=== PATIENT | female | born 1990 ===

== ENCOUNTER 2020-06-08 18:29 | Outpatient (REF) | payer SELFPAY | END 2020-06-08 18:30 | disposition home or self-care (01) | LOC: HO.HSH 18:29 | PROVIDERS: Visit Provider Internal Medicine Critical Care Medicine | DX: Z20.828 Contact with and (suspected) exposure to other viral communicable diseases (principal) | CPT/HCPCS: U0003 ==

== ENCOUNTER → 2020-07-17 14:45 | Outpatient (BNVA) | payer OTHER, SELFPAY | PROVIDERS: Visit Provider Physician Assistant | DX: Z76.89 Persons encountering health services in other specified circumstances (principal) ==

== ENCOUNTER → 2020-07-19 09:24 | Outpatient (BNVA) | payer OTHER, SELFPAY | PROVIDERS: Visit Provider Surgery | DX: Z76.89 Persons encountering health services in other specified circumstances (principal) ==

== ENCOUNTER 2020-07-25 11:29 | Outpatient (REF) | payer OTHER, SELFPAY ==
--- NOTE | 2020-07-25 11:48 | ECG_ITS ---
Test Reason : CP Blood Pressure : / mmHG Vent. Rate : 073 BPM Atrial Rate : 073 BPM P-R Int : 122 ms QRS Dur : 086 ms QT Int : 380 ms P-R-T Axes : 035 056 030 degrees QTc Int : 418 ms Sinus rhythm with marked sinus arrhythmia Otherwise normal ECG No previous ECGs available Referred By: Arden Gifford Electronically Signed By:CARRINGTON MCMILLAN MD
--- NOTE | 2020-07-25 11:59 | XR_ITS ---
EXAMINATION: XR CHEST CLINICAL INFORMATION: Severe obesity due to excess calories COMPARISON: None TECHNIQUE: 2 views of the chest were obtained. FINDINGS: No significant abnormality is noted involving the heart, lungs, mediastinum, bony thorax or soft tissues. XR/XR chest 2V IMPRESSION: Unremarkable chest examination.
[2020-07-25 12:09] LABS: MANUAL DIFF FLAG NO
[2020-07-25 12:15] LABS: Basophils Percent Auto 0.5 % (0-2); Eosinophils Absolute Auto 0.1 X10*3/uL (0.0-0.4); Eosinophils Percent Auto 1.8 % (0-4); Hematocrit 39.2 % (37-47); Imm Gran Abs Auto 0.02 X10*3/uL (0.00-0.03); Imm Gran Pct Auto 0.3 % (0.0-0.4); Lymphocytes Percent Auto 38.4 % (20-40); Mean Corpuscular HGB Conc 30.6 g/dl (31.0-35.0); Mean Corpuscular Hemoglobin 23.3 pg (27.0-33.0); Mean Corpuscular Volume 76.3 fL (80-98); Monocytes Absolute Auto 0.6 X10*3/uL (0.1-1.2); Monocytes Percent Auto 7.6 % (2-11); Neutrophils Absolute Auto 4.1 X10*3/uL (2.0-8.3); Neutrophils Percent Auto 51.4 % (45-73); Platelet Count 342 X10*3/uL (160-400); Red Blood Count 5.14 X10*6/uL (4.20-5.50); Red Cell Distribution Width 17.1 % (11.0-16.0); White Blood Count 7.9 X10*3/uL (4.8-10.8)
[2020-07-25 12:20] LABS: Estimated Average Glucose 117 mg/dL; Hemoglobin A1c % 5.7 %
[2020-07-25 12:59] LABS: Alanine Aminotransferase 12 U/L (0-31); Albumin Level 3.8 g/dL (3.5-5.0); Alkaline Phosphatase 117 U/L (39-117); Anion Gap 11 (12-20); Aspartate Amino Transferase 15 U/L (5-31); Bilirubin Total 0.3 mg/dL (0.0-1.0); Blood Urea Nitrogen 12 mg/dL (9-16); C Reactive Protein 2.04 mg/dL (< or = 0.50); Calcium 8.5 mg/dL (8.4-10.2); Carbon Dioxide 26 mmol/L (22-29); Chloride 105 mmol/L (96-108); Cholesterol 190 mg/dL; Estimated Glomerular Filt Rate > 60; Glucose Random 96 mg/dL (60-115); HDL Cholesterol 36 mg/dL; LDL Cholesterol Calculated 130 mg/dl; Potassium 4.4 mmol/l (3.3-5.1); Sodium 138 mmol/L (135-145); Total Protein 7.7 g/dL (6.5-8.0); Triglycerides 122 mg/dL
[2020-07-25 13:24] LABS: Ferritin 12 ng/mL (10-122); TSH reflex Free T4 0.74 mIU/mL (0.32-4.0); Vitamin D 25-OH Total 11.4 ng/mL (>30)
[2020-07-25 13:44] LABS: Folate 6.7 ng/mL (> or = 4.0); Vitamin B12 333 pg/mL (200-900)
[2020-07-26 11:42] LABS: Insulin Level Total 11.1 uIU/mL
[2020-07-26 19:08] LABS: Calcium (PTHI) 8.7 mg/dL (8.6-10.2); PTHI 60 pg/mL (14-64)
[2020-07-29 23:32] LABS: Zinc 83 mcg/dL (60-130)
[2020-07-30 08:22] LABS: Vitamin B1 9 nmol/L (8-30)
[2020-07-31 14:12] LABS: Vitamin A 28 mcg/dL (38-98)
== END 2020-07-25 11:30 | disposition home or self-care (01) ==
LOC: HO.LAB 11:29
PROVIDERS: Visit Provider Surgery
DX: E66.01 Morbid (severe) obesity due to excess calories (principal); R79.89 Other specified abnormal findings of blood chemistry
CPT/HCPCS: 36415; 71046; 80053; 80061; 82306; 82607; 82728; 82746; 83036; 83525; 83970; 84425; 84443; 84590; 84630; 85025; 86140; 93005

== ENCOUNTER 2020-08-03 18:15 | Emergency (ER) | payer OTHER, SELFPAY ==
[2020-08-03 18:31] VITALS: BP 142/88; PULSE 90; RESP 16; TEMP 36.5; O2SAT 100; BMI 41.2
== END 2020-08-03 19:18 | disposition left against medical advice (07) ==
PROVIDERS: Emergency Provider Emergency Medicine
DX: S10.91XA Abrasion of unspecified part of neck, initial encounter (principal); Y04.2XXA Assault by strike against or bumped into by another person, initial encounter; M79.601 Pain in right arm; Y93.F9 Activity, other caregiving; Y92.129 Unspecified place in nursing home as the place of occurrence of the external cause; Y99.0 Civilian activity done for income or pay
CPT/HCPCS: 99282

== ENCOUNTER 2020-08-07 11:25 | Outpatient (REF) | payer OTHER, SELFPAY ==
[2020-08-09 13:41] LABS: H Pylori Breath Test DETECTED (NOT DETECTED)
== END 2020-08-07 11:26 | disposition home or self-care (01) ==
LOC: HO.LNP 11:25
PROVIDERS: PCP Internal Medicine; Visit Provider Physician Assistant
DX: Z11.0 Encounter for screening for intestinal infectious diseases (principal)
CPT/HCPCS: 83013; 99211

== ENCOUNTER → 2020-08-17 08:08 | Outpatient (BNVA) | payer OTHER, SELFPAY | PROVIDERS: PCP Internal Medicine; Visit Provider Surgery | DX: Z76.89 Persons encountering health services in other specified circumstances (principal) ==

== ENCOUNTER → 2020-08-24 08:23 | Outpatient (BNVA) | payer OTHER, SELFPAY | PROVIDERS: PCP Internal Medicine; Visit Provider Dietitian, Registered ==

== ENCOUNTER → 2020-09-05 07:28 | Outpatient (BNVA) | payer OTHER, SELFPAY | PROVIDERS: PCP Internal Medicine; Visit Provider Surgery ==

== ENCOUNTER → 2020-09-19 08:13 | Outpatient (BNVA) | payer OTHER, SELFPAY | PROVIDERS: PCP Internal Medicine; Visit Provider Dietitian, Registered ==

== ENCOUNTER → 2020-10-01 08:18 | Outpatient (BNVA) | payer OTHER, SELFPAY | PROVIDERS: PCP Internal Medicine; Visit Provider Surgery ==

== ENCOUNTER → 2020-10-03 08:13 | Outpatient (BNVA) | payer OTHER, SELFPAY | PROVIDERS: PCP Internal Medicine; Visit Provider Dietitian, Registered ==

== ENCOUNTER 2022-02-25 09:46 | Outpatient (REF) | payer OTHER, SELFPAY ==
--- NOTE | ~2022-02-25 | XR_ITS ---
EXAMINATION: XR CHEST CLINICAL INFORMATION: Bariatric service evaluation, E66.01. COMPARISON: Chest radiographs 07/25/2020 TECHNIQUE: 2 views of the chest were obtained. FINDINGS: Lungs are clear. The vascularity is normal. There is no infiltrate or effusion or groundglass opacity. The hilar and mediastinal contours are normal. Bony structures are unremarkable. There is a piercing overlying the left breast. XR/XR chest 2V IMPRESSION: Unremarkable examination.
--- NOTE | 2022-02-25 09:53 | ECG_ITS ---
Test Reason : E66.01 Blood Pressure : / mmHG Vent. Rate : 085 BPM Atrial Rate : 085 BPM P-R Int : 124 ms QRS Dur : 082 ms QT Int : 366 ms P-R-T Axes : 042 055 024 degrees QTc Int : 435 ms Normal sinus rhythm Normal ECG When compared with ECG of 25-JUL-2020 11:54, No significant change was found Referred By: Isrrael Bennett Electronically Signed By:TRIPP VALENZUELA
[2022-02-25 10:39] LABS: Hemoglobin 12.6 g/dl (12.0-16.0); Mean Corpuscular Volume 78.2 fL (80.0-98.0); PLT CLUMP 1; Red Cell Distribution Width 17.2 % (11.0-16.0); SCAN SMEAR FLAG 1
[2022-02-25 10:41] LABS: Basophils Absolute Auto 0.1 X10*3/uL (0.0-0.2); Basophils Percent Auto 0.5 % (0-2); Eosinophils Absolute Auto 0.1 X10*3/uL (0.0-0.4); Eosinophils Percent Auto 1.2 % (0-4); Hematocrit 40.8 % (37.0-47.0); Imm Gran Abs Auto 0.02 X10*3/uL (0.00-0.03); Imm Gran Pct Auto 0.2 % (0.0-0.4); Lymphocytes Absolute Auto 3.1 X10*3/uL (1.2-4.9); MANUAL DIFF FLAG SCAN; Mean Corpuscular HGB Conc 30.9 g/dl (31.0-35.0); Mean Corpuscular Hemoglobin 24.1 pg (27.0-33.0); Mean Platelet Volume 11.9 fL (9.4-12.3); Monocytes Absolute Auto 0.6 X10*3/uL (0.1-1.2); Monocytes Percent Auto 5.5 % (2-11); Neutrophils Absolute Auto 6.4 x10*3/uL (2.0-8.3); Neutrophils Percent Auto 62.6 % (45-73); Red Blood Count 5.22 X10*6/uL (4.20-5.50)
[2022-02-25 10:46] LABS: Estimated Average Glucose 126 mg/dL
[2022-02-25 11:31] LABS: Alanine Aminotransferase 12 U/L (0-31); Alkaline Phosphatase 132 U/L (39-117); Anion Gap 12 (12-20); Aspartate Amino Transferase 16 U/L (5-31); Bilirubin Total 0.5 mg/dL (0.0-1.0); Blood Urea Nitrogen 10 mg/dL (9-16); C Reactive Protein 4.49 mg/dL (< or = 0.50); Carbon Dioxide 26 mmol/L (22-29); Chloride 105 mmol/L (96-108); Cholesterol 211 mg/dL; Estimated Glomerular Filt Rate > 60; Glucose Random 109 mg/dL (60-115); HDL Cholesterol 39 mg/dL; Iron 42 mcg/dL (30-160); LDL Cholesterol Calculated 143 mg/dl; Percent Iron Saturation 10 % (15-50); Potassium 4.8 mmol/L (3.3-5.1); Sodium 138 mmol/L (135-145); Total Iron Binding Capacity 412 mcg/dL (228-428); Total Protein 7.8 g/dL (6.5-8.0); Triglycerides 145 mg/dL; Unsaturated Iron Binding 370 ug/dL
[2022-02-25 11:33] LABS: Platelet Count 304 X10*3/uL (160-400); White Blood Count 10.2 X10*3/uL (4.8-10.8)
[2022-02-25 11:34] LABS: SLIDE REVIEW VERIFIED
[2022-02-25 11:49] LABS: Folate 7.2 ng/mL (> or = 4.0); Vitamin B12 291 pg/mL (200-900)
[2022-02-25 11:56] LABS: Ferritin 26 ng/mL (10-122); Insulin 14 uU/mL (2-29); TSH reflex Free T4 0.88 uIU/mL (0.32-4.0); Vitamin D 25-OH Total 27.7 ng/mL (>30)
[2022-02-26 14:22] LABS: Calcium (PTHI) 9.2 mg/dL (8.6-10.2); PTHI 63 pg/mL (16-77)
[2022-03-01 06:06] LABS: Zinc 90 mcg/dL (60-130)
[2022-03-03 17:42] LABS: Vitamin A 31 mcg/dL (38-98)
[2022-03-05 15:51] LABS: Vitamin B1 <6 nmol/L (8-30)
== END 2022-02-25 09:47 | disposition home or self-care (01) ==
LOC: HO.LAB 09:46
PROVIDERS: PCP Internal Medicine; Visit Provider Physician Assistant Surgical
DX: E66.01 Morbid (severe) obesity due to excess calories (principal); Z68.42 Body mass index [BMI] 45.0-49.9, adult; Z71.3 Dietary counseling and surveillance
CPT/HCPCS: 36415; 71046; 80053; 80061; 82306; 82607; 82728; 82746; 83036; 83525; 83540; 83970; 84425; 84443; 84590; 84630; 85025; 86140; 93005; 99211; 99212

== ENCOUNTER 2022-02-25 15:13 | Outpatient (REF) | payer OTHER, SELFPAY ==
[2022-02-26 15:43] LABS: H Pylori Breath Test Positive (Negative)
== END 2022-02-25 15:14 | disposition home or self-care (01) ==
LOC: HO.LNP 15:13
PROVIDERS: Visit Provider Physician Assistant Surgical
DX: E66.01 Morbid (severe) obesity due to excess calories (principal)
CPT/HCPCS: 83013

== ENCOUNTER → 2022-03-17 08:05 | Outpatient (BNVA) | payer OTHER, SELFPAY | PROVIDERS: PCP Internal Medicine; Visit Provider Physician Assistant Surgical | DX: E66.01 Morbid (severe) obesity due to excess calories (principal); A04.8 Other specified bacterial intestinal infections; Z71.3 Dietary counseling and surveillance; Z79.899 Other long term (current) drug therapy | CPT/HCPCS: 99212 ==

== ENCOUNTER → 2022-04-14 14:10 | Outpatient (BNVA) | payer OTHER, SELFPAY | PROVIDERS: PCP Internal Medicine; Referring Provider Physician Assistant Surgical; Visit Provider Dietitian, Registered | DX: E66.01 Morbid (severe) obesity due to excess calories (principal); Z68.42 Body mass index [BMI] 45.0-49.9, adult; Z71.3 Dietary counseling and surveillance | CPT/HCPCS: 97802 ==

== ENCOUNTER 2022-04-15 09:14 | Outpatient (REF) | payer OTHER, SELFPAY ==
--- NOTE | ~2022-04-15 | US_ITS ---
EXAMINATION: US COMPLETE ABDOMEN WITH LIVER ELASTOGRAPHY CLINICAL INFORMATION: Obesity COMPARISON: None. TECHNIQUE: Real-time imaging of the abdominal viscera. Noninvasive ultrasound liver fibrosis assessment is performed using Ean ElastPQ point quantification shear wave elastography (2D-SWE) with a C5-2 MHz transducer. Multiple elastography samples are obtained. FINDINGS: PANCREAS: Normal. ABDOMINAL AORTA: The proximal, middle, and distal aortic segments are normal in caliber. INFERIOR VENA CAVA: Visualized portions are normal. LIVER: Normal. The liver demonstrates normal size, contour and echogenicity. No focal lesion or intrahepatic biliary duct dilatation. The right lobe measures 17 cm in length. The left lobe measures 14 cm in length. Portal flow is normal/hepatopedal Shear wave liver elastography median stiffness is 1.67 m/s (reference: normal median stiffness is 1.3 m/s or less). IQR/median stiffness to assess sampling precision is 0.13 (reference: good quality data set is IQR/median stiffness of 0.15 or less). GALLBLADDER: Normal. The gallbladder is physiologically distended without evidence of stones, sludge, polyps, wall thickening or pericholecystic fluid. COMMON BILE DUCT: Normal in caliber measuring 0.2 cm in diameter. RIGHT KIDNEY: Normal. No hydronephrosis. No renal calculi or focal parenchymal lesions. The kidney measures 12 cm in maximum dimension. LEFT KIDNEY: Normal. No hydronephrosis. No renal calculi or focal parenchymal lesions. The kidney measures 12 cm in maximum dimension. SPLEEN: Normal. The spleen measures 11 cm in maximum dimension. FREE FLUID: None. US/US abdomen comp w elastography IMPRESSION: 1. Impression: Normal abdominal ultrasound. 2. Liver elastography: Adequate liver sampling. In the absence of other known clinical signs, rules out compensated advanced chronic liver disease. REFERENCE: Society of Radiologists in Ultrasound Liver Stiffness Thresholds (2020): LIVER STIFFNESS THRESHOLDS: *Liver Stiffness equal or less than 1.3 m/s: High probability of being normal. *Liver Stiffness less than 1.7 m/s: In the absence of other known clinical signs, rules out compensated advanced chronic liver disease. *Liver Stiffness 1.7-2.1 m/s: Suggestive of compensated advanced chronic liver disease but need further test for confirmation. *Liver Stiffness over 2.1 m/s: Rules in compensated advanced chronic liver disease. *Liver Stiffness over 2.4 m/s: Suggestive of clinically significant portal hypertension. QUALITY OF DATA SET: *IQR/Median value equal or less than 0.15 implies a quality data set. *IQR/Median value over 0.15 implies a poor quality data set. SIGNIFICANT CHANGE FROM PRIOR EXAM: Significant change if liver stiffness measurement is 10% or greater from prior exam. OTHER CONSIDERATIONS: The stage of liver fibrosis may be overestimated in the setting of acute hepatitis, liver inflammation, elevated liver function tests, hepatic vascular congestion, obstructive cholestasis, non-fasting state, and infiltrative diseases such as amyloidosis and lymphoma. In some patients with NAFLD, the liver stiffness thresholds for compensated advanced chronic liver disease may be lower. In causes other than viral hepatitis and NAFLD, liver stiffness thresholds are not well established.
--- NOTE | ~2022-04-15 | FL_ITS ---
EXAMINATION: XR FLUOROSCOPY UPPER GI WITH AIR CLINICAL INFORMATION: Obesity COMPARISON: None TECHNIQUE: Upper GI was performed using thin and thick barium and effervescent granules. FINDINGS: Esophageal motility is normal. No hernia or reflux is seen. The stomach and duodenum are normal. No fold thickening, mass, ulcer or stricture is seen. FLUOROSCOPY TIME: 0.5 minutes DOSE AREA PRODUCT: 5.7 flores per centimeter squared. 17 saved fluoroscopic images. FL/FL upper GI w air IMPRESSION: Unremarkable examination.
== END 2022-04-15 09:15 | disposition home or self-care (01) ==
LOC: HO.US 09:14
PROVIDERS: Visit Provider Physician Assistant Surgical
DX: E66.01 Morbid (severe) obesity due to excess calories (principal)
CPT/HCPCS: 74246; 76705; 76981; 99212

== ENCOUNTER → 2022-04-17 15:00 | Outpatient (BNVA) | payer OTHER, SELFPAY | PROVIDERS: PCP Internal Medicine; Referring Provider Physician Assistant Surgical; Visit Provider Counselor Mental Health | DX: F50.81 Binge eating disorder (principal); E66.01 Morbid (severe) obesity due to excess calories | CPT/HCPCS: 90791 ==

== ENCOUNTER → 2022-04-18 08:32 | Outpatient (BNVA) | payer OTHER, SELFPAY | PROVIDERS: PCP Internal Medicine; Visit Provider Physician Assistant Surgical | DX: Z11.0 Encounter for screening for intestinal infectious diseases (principal) | CPT/HCPCS: 99211 ==

== ENCOUNTER 2022-04-18 16:26 | Outpatient (REF) | payer OTHER, SELFPAY ==
[2022-04-19 09:06] LABS: H Pylori Breath Test Negative (Negative)
== END 2022-04-18 16:27 | disposition home or self-care (01) ==
LOC: HO.LNP 16:26
PROVIDERS: Visit Provider Physician Assistant Surgical
DX: Z01.818 Encounter for other preprocedural examination (principal)
CPT/HCPCS: 83013

== ENCOUNTER → 2022-04-28 09:00 | Outpatient (BNVA) | payer OTHER, SELFPAY | PROVIDERS: PCP Internal Medicine; Visit Provider Counselor Mental Health | DX: F50.81 Binge eating disorder (principal); E66.01 Morbid (severe) obesity due to excess calories | CPT/HCPCS: 90832 ==

== ENCOUNTER → 2022-05-15 13:41 | Outpatient (BNVA) | payer OTHER, SELFPAY | PROVIDERS: PCP Internal Medicine; Visit Provider Dietitian, Registered | DX: E66.9 Obesity, unspecified (principal) | CPT/HCPCS: 97803 ==

== ENCOUNTER → 2022-05-21 13:00 | Outpatient (BNVA) | payer OTHER, SELFPAY | PROVIDERS: PCP Internal Medicine; Visit Provider Physician Assistant Surgical | DX: E66.01 Morbid (severe) obesity due to excess calories (principal); F50.81 Binge eating disorder | CPT/HCPCS: 90832; 99212 ==

== ENCOUNTER → 2022-08-08 08:21 | Outpatient (BNVA) | payer OTHER, SELFPAY | PROVIDERS: PCP Internal Medicine; Visit Provider Surgery | DX: Z13.89 Encounter for screening for other disorder (principal) ==

== ENCOUNTER → 2022-08-13 09:36 | Outpatient (BNVA) | payer OTHER, SELFPAY | PROVIDERS: PCP Internal Medicine; Visit Provider Surgery | DX: Z13.89 Encounter for screening for other disorder (principal) ==

== ENCOUNTER 2022-08-14 08:58 | Outpatient (REF) | payer OTHER, SELFPAY ==
[2022-08-14 09:21] LABS: MANUAL DIFF FLAG NO
[2022-08-14 09:54] LABS: Basophils Percent Auto 0.4 % (0-2); Eosinophils Absolute Auto 0.1 X10*3/uL (0.0-0.4); Eosinophils Percent Auto 1.1 % (0-4); Hematocrit 41.6 % (37.0-47.0); Hemoglobin 12.6 g/dl (12.0-16.0); Imm Gran Abs Auto 0.05 X10*3/uL (0.00-0.03); Imm Gran Pct Auto 0.4 % (0.0-0.4); Lymphocytes Absolute Auto 3.2 X10*3/uL (1.2-4.9); Lymphocytes Percent Auto 28.1 % (20-40); Mean Corpuscular HGB Conc 30.3 g/dl (31.0-35.0); Mean Corpuscular Hemoglobin 23.2 pg (27.0-33.0); Mean Corpuscular Volume 76.6 fL (80.0-98.0); Mean Platelet Volume 10.5 fL (9.4-12.3); Monocytes Absolute Auto 0.7 X10*3/uL (0.1-1.2); Monocytes Percent Auto 6.3 % (2-11); Neutrophils Absolute Auto 7.3 x10*3/uL (2.0-8.3); Neutrophils Percent Auto 63.7 % (45-73); Platelet Count 334 X10*3/uL (160-400); Red Blood Count 5.43 X10*6/uL (4.20-5.50); Red Cell Distribution Width 17.5 % (11.0-16.0); White Blood Count 11.4 X10*3/uL (4.8-10.8)
[2022-08-14 10:00] LABS: INTERNATIONAL NORM RATIO 0.9 (0.9-1.1); Prothrombin Time 10.8 SEC (10.0-13.1)
[2022-08-14 10:03] LABS: Partial Thromboplastin Time 30.3 SEC (26.0-36.4)
[2022-08-14 10:56] LABS: Estimated Average Glucose 126 mg/dL
[2022-08-14 11:45] LABS: Alanine Aminotransferase 20 U/L (0-31); Albumin Level 3.8 g/dL (3.5-5.0); Alkaline Phosphatase 120 U/L (39-117); Anion Gap 11 (12-20); Aspartate Amino Transferase 16 U/L (5-31); Bilirubin Total 0.2 mg/dL (0.0-1.0); Blood Urea Nitrogen 11 mg/dL (9-16); C Reactive Protein 3.95 mg/dL (< or = 0.50); Calcium 8.9 mg/dL (8.4-10.2); Carbon Dioxide 25 mmol/L (22-29); Chloride 106 mmol/L (96-108); Cholesterol 228 mg/dL; Estimated Glomerular Filt Rate > 60; Glucose Random 133 mg/dL (60-115); HDL Cholesterol 41 mg/dL; LDL Cholesterol Calculated 162 mg/dl; Potassium 4.5 mmol/L (3.3-5.1); Sodium 137 mmol/L (135-145); Total Protein 7.5 g/dL (6.5-8.0); Triglycerides 125 mg/dL
[2022-08-14 12:12] LABS: Insulin 20 uU/mL (2-29); TSH reflex Free T4 1.06 uIU/mL (0.32-4.0)
== END 2022-08-14 08:59 | disposition home or self-care (01) ==
LOC: HO.LAB 08:58
PROVIDERS: Visit Provider Surgery
DX: E66.9 Obesity, unspecified (principal); Z68.39 Body mass index [BMI] 39.0-39.9, adult
CPT/HCPCS: 36415; 80053; 80061; 83036; 83525; 84443; 85025; 85610; 85730; 86140

== ENCOUNTER 2022-08-19 08:17 | Inpatient (IN) | payer OTHER, SELFPAY ==
[2022-08-14 15:23] VITALS: BMI 41.2
--- NOTE | 2022-08-15 22:41 | MHC.SHP ---
Pre-Procedural Eval Section A Date of Service: 08/15/22 The patient is an INPATIENT: Yes The History & Physical has been completed within 30 days and I have reviewed it.: Yes Section B Chief Complaint: morbid obesity Relevant Family History (Specify if Yes): No Relevant Social History: None Present Medications: None Medical History: No relevant PMH History of Previous Operations: No relevant previous surgery Allergies: Allergies Allergy/AdvReac Type Severity Reaction Status Date / Time No Known Allergies Allergy Verified 08/13/22 11:17 Review of Systems Sugical H&P ROS: Negative: Constitution, Cardiovascular, Respiratory, Neurological, Psychiatric, Hem-Onc, Allergic/Immunologic, Gastrointestinal, Genitourinary, Musculoskeletal, Integumentary, Endocrine and Eyes/Ears/Nose/Throat Exam Surgical H&P Exam: Normal: HEENT, Normal: Heart, Normal: Lungs, Normal: Extremities, Normal: Abdomen, Normal: Skin and Normal: Neurological Plan Diagnosis/Plan: Unchanged I have reviewed the history and physical and performed a pertinent physical examination on my patient. No changes have occurred unless specified. Time Spent With Patient Time: Total time managing care of this patient today ____ minutes.
--- NOTE | 2022-08-18 10:35 | P.CONAN_ITS ---
Documented by User: Anna Magallanes NP 08/18/22 10:37 HPI - Anesthesia Eval Consult details Narrative: 32yo F for Gastrectomy Sleeve,Possible diaphragmatic hernia,Possible ventral hernia,possible open PMFSH Active Problems Active Problems: All Active Problems (Updated 08/14/22 @ 15:24 by Susie Mata RN) Vitamin B12 deficiency (Acute) Vitamin D deficiency (Acute) H. pylori infection (Acute) Binge eating disorder (Acute) Anemia (Acute) Obesity (Acute) BMI 39.0-39.9,adult (Acute) Morbid (severe) obesity due to excess calories (Acute) Past Medical History Medical History GERD (gastroesophageal reflux disease) Morbid (severe) obesity due to excess calories Surgery, elective Family History Family History Mother No problems noted. Father Diabetes Son No problems noted. Daughter No problems noted. Surgical History Surgical History Hx of tubal ligation Hx of wisdom tooth extraction Social History Social History (Updated 08/19/22 @ 09:58 by Deborah Addison MD) Are you a primary director of managed care to a significant other at home: No Do you presently have visiting nurse or other home services: No Alcohol intake: never Patient Tobacco Use Status: Current someday Tobacco user Tobacco use type: Cigarette Cigarettes Per Day: 1 Years Smoked: 2 Smoked in Last 30 Days: Yes Use of substances other than those prescribed or required for medical reasons: No Have you been hit, kicked, punched, or otherwise hurt by someone within the past year? If so, by whom?: No Are you DNR?: No Advance Directives: No Advance Directives Information Provided: Yes Advance Directives on File: No Recently lost weight without trying: No Eating poorly because of decreased appetite: No Nutrition Risks: No Nutritional Risk Patient : No FDLMP: 07/26/22 : No Poor oral hygiene: No Meds Allergies Allergy/AdvReac Type Severity Reaction Status Date / Time No Known Allergies Allergy Verified 08/19/22 08:12 Exam Exam Date and Time: August 18, 2022 1035 Height,Weight and Vital Signs: Height 5 ft Weight 95.708 kg Pertinent Lab Results Pertinent Lab Results: Laboratory Tests 08/14/22 09:03 Blood Type A Positive Antibody Screen NEGATIVE Laboratory Tests 08/14/22 08/14/22 09:20 09:20 WBC 11.4 H Hgb 12.6 Hct 41.6 Plt Count 334 Sodium 137 Potassium 4.5 Chloride 106 Carbon Dioxide 25 BUN 11 Creatinine 0.71 Narrative Narrative: EKG Vent. Rate : 085 BPM ? ? Atrial Rate : 085 BPM ?? P-R Int : 124 ms? QRS Dur : 082 ms ? ? QT Int : 366 ms ? ? ? P-R-T Axes : 042 055 024 degrees ?? QTc Int : 435 ms ? Normal sinus rhythm Normal ECG When compared with ECG of 25-JUL-2020 11:54, No significant change was found Assessment and Plan Assessment Anesthesia Assessment: Chart Reviewed Documented by User: Deborah Addison MD 08/19/22 10:01 [facility] Active Problems Active Problems: All Active Problems (Updated 08/19/22 @ 09:58 by Deborah Addison MD) Vitamin B12 deficiency (Acute) Vitamin D deficiency (Acute) H. pylori infection (Acute) Binge eating disorder (Acute) Anemia (Acute) Obesity (Acute) BMI 39.0-39.9,adult (Acute) Morbid (severe) obesity due to excess calories (Acute)- BMI 41.2 Past Medical History Medical History GERD (gastroesophageal reflux disease) Morbid (severe) obesity due to excess calories Surgery, elective Family History Family History Mother No problems noted. Father Diabetes Son No problems noted. Daughter No problems noted. Family history of problems with anesthesia: No Surgical History Surgical History Hx of tubal ligation Hx of wisdom tooth extraction History of Problems with Anesthesia: No Social History Social History (Updated 08/19/22 @ 09:58 by Deborah Addison MD) Are you a primary director of managed care to a significant other at home: No Do you presently have visiting nurse or other home services: No Alcohol intake: never Patient Tobacco Use Status: Current someday Tobacco user Tobacco use type: Cigarette Cigarettes Per Day: 1 Years Smoked: 2 Smoked in Last 30 Days: Yes Use of substances other than those prescribed or required for medical reasons: No Have you been hit, kicked, punched, or otherwise hurt by someone within the past year? If so, by whom?: No Are you DNR?: No Advance Directives: No Advance Directives Information Provided: Yes Advance Directives on File: No Recently lost weight without trying: No Eating poorly because of decreased appetite: No Nutrition Risks: No Nutritional Risk Patient : No FDLMP: 07/26/22 : No Poor oral hygiene: No Meds Allergies Allergy/AdvReac Type Severity Reaction Status Date / Time No Known Allergies Allergy Verified 08/19/22 08:12 Exam Height,Weight and Vital Signs: Height 5 ft Weight 95.708 kg Vital Signs Temp Pulse Resp BP Pulse Ox O2 Del Method 08/19/22 08:19 97.2 F 122 H 16 149/82 H 97 Room Air Pertinent Lab Results Pertinent Lab Results: Laboratory Tests 08/14/22 09:03 Blood Type A Positive Antibody Screen NEGATIVE Laboratory Tests 08/14/22 08/14/22 09:20 09:20 WBC 11.4 H Hgb 12.6 Hct 41.6 Plt Count 334 Sodium 137 Potassium 4.5 Chloride 106 Carbon Dioxide 25 BUN 11 Creatinine 0.71 Lab Results 08/14/22 08/18/22 Range/Units 09:03 13:10 COVID-19 ([facility]CO) Negative (Negative) COVID-19 Clin Com See Note Blood Type A Positive Antibody Screen NEGATIVE Airway Mallampati Class: II TM Dist: >3cm Neck ROM: Full Loose/Missing/Broken Teeth: No (Denies broken, loose, missing teeth) Heart: RRR Lungs: CTAB Assessment and Plan Assessment Anesthesia Assessment: Anesthesia Plan Discussed Final Anesthetic Review Family History of Problems with Anesthesia: No History of Problems with Anesthesia: No NPO: Yes ASA Class: III Final Preanesthetic Review: No Changes in Pt Med Stat, Meds/Allgs Chart Reviewed, Consent Obtained/Reviewed and Anes Risks/Benef Reviewed Patient Risk: Intermediate Procedure Risk: Intermediate Assessment/Block/Sedation in SS: Assess/Block/Sedation-SS Anesthetic Plan Anesthetic Plan: GA Disposition: Standard PACU and Inp. Admit - Standard Bed
[2022-08-18 13:39] LABS: COVID-19 Test Negative (Negative); IDNOW Serial# 16C4AD1C
[2022-08-19] VITALS (16 sets, daily range): BP systolic 117–154; BP diastolic 63–99; PULSE 86–122; RESP 8–20; TEMP 36–36.7; O2SAT 97–100
[2022-08-19] MEDS: Lactated Ringers 1,000 ML 100 ML IVCONT ×3 (08:59→22:13)
[2022-08-19] MEDS: Lactated Ringers 1,000 ML 999 ML IV (08:59)
--- NOTE | 2022-08-19 10:13 | P.BOP_ITS ---
Brief Operative Note Date of Service: 08/19/22 Pre-op diagnosis: Severe obesity with comorbidities (see below) Post-op diagnosis: same Procedure: INITIAL PATIENT BMI ON PRESENTATION AT OUR OFFICE: 45.3 kg/m2 LAST BMI BEFORE SURGERY: 39.9 kg/m2 COMORBIDITIES: liver fibrosis ?The patient presented to the Weight Management Program with significant obesity that was negatively impacting the patient's comorbidities as listed above.? The program is a phased program with a special focus on preoperative medical weight management to promote substantial weight loss and prepare the patients for the second phase of the program: bariatric surgery. The patient participated in an intensive weekly lifestyle ?intervention and exercise program during which the patient ?has lost between the initial office visit and the last preoperative visit 20.9 lbs, or 9% of initial actual body weight. It was deemed appropriate for the patient to now have bariatric surgery. In light of the current Covid-19 pandemic and the well documented strong association of obesity and increased risk of worse outcomes if infected with Covid-19 (REFERENCES: https://pubmed.ncbi.nlm.nih.gov/63331084/ ,? https://pubmed.ncbi.nlm.nih.gov/18594347/ ), any delay in undergoing bariatric surgery may lead to the patient's worsening health condition and increased?risk of more severe Covid-19 disease if infected. In addition a recent?study from [facility] published in [facility] on 07/29/2021 ([email or web address]) found that, among patients with obesity, substantial weight loss achieved with surgery was associated with improved outcomes of COVID-19 infection. The findings suggest that obesity can be a modifiable risk factor for the severity of COVID-19 infection. In addition, the patient met the BMI-criteria for bariatric surgery based on the BMI on initial presentation. The patient should not be penalized for achieving such weight loss because ?it is not sustainable long-term without surgical intervention and it was achieved in preparation for bariatric surgery ?under my direction and based on my published research ([email or web address]).[email or web address] and? https://www.ree.org/article/[email or web address](94)62753-X/pdf ) ?that a 10% preoperative weight loss improves long-term weight loss after surgery and reduces perioperative complications.? Insurance carriers such as [facility] have endorsed my recommendations ?and have included in their policies criteria to include a 10% preoperative weight loss requirement. PROCEDURE: Esophago-gastroscopy,diagnostic laparoscopy INDICATIONS: This is a 32 year-old female who was electively scheduled for laparoscopic, possibly open sleeve gastrectomy. The risks and complications of the procedure were discussed with the patient in advance, particularly the possibility of ; pulmonary embolism; staple line leak; bleeding; GERD; cardiac, pulmonary, or renal complications; as well as long-term problems such as insufficient weight loss, vitamin deficiency, strictures, or ulcers. The patient understood all the risks, and was in agreement to proceed with surgery. DESCRIPTION OF PROCEDURE: After informed consent was obtained from the patient, the patient was given preoperative antibiotics, and was transferred to the operating room. After successful induction of general anesthesia, pneumatic compression devices were placed on both lower extremities. An upper endoscopy was performed next. The oropharynx and esophagus appeared to be within normal limits. There was no diaphragmatic hernia present consistent with the findings of the preoperative upper GI. The stomach was entered. Then after all fluid and air were suctioned and the stomach was fully decompressed, the scope was withdrawn and secured in the mid esophagus. The patient was then prepped and draped in the usual sterile manner, and abdominal access was established at the right upper quadrant with the Milena technique. A 12 mm blunt port was inserted, and the abdomen was insufflated with CO2 to a pressure of 15 mmHg. Under direct visualization, additional ports were placed, specifically two 5 mm Versi-step ports to the left upper quadrant, and a 5 mm Versi-Step port to the right upper quadrant. 1% lidocaine plain was used to infiltrate all port sites as well as all fascia defects. Folllowing that, the patient was placed in a steep reverse Trendelenburg position. An additional 5 mm port was placed to the right flank for the Mediflex retractor that was used to retract the left lobe of the liver. The patient had significant hepatomegaly and in addition the left liver lobe was, enlarged, quite thick and heavy. There was also very limited room to left the lobe up to expose the stomach as a result of the patient's body habitus. Furthermore the Pretzel liver retractor I was using was malfunctioning. Unfortunately the 3rd liver retractor had been sen for repair (I was not aware of this) and the other retractor was used in the first case. I tried the D shape liver retractor but I could not get adequate exposure. I tried the triangular retractor. With that I was able to expose the hiatus. However the lateral edge of the left lobe could not be twister hand. I was able to see the upper pole of the spleen. While I was trying to define the anatomy to decide whether we could safely proceed with the procedure or not, the assistant financial accountant made a scratch at the lateral edge of the left live lobe. That area was engorged due to the liver retractor. Some bleeding occurred which was quickly controlled by placing pieces of surgicel in the area and releasing the pressure from the liver retractor. We waited 10 minutes and then the retractor was re-positioned and I looked at the area again. I was able to see the scratch. It was very superficial and there was no active bleeding. All blood was suctioned, the two pieces of Surgicel were removed and a clean one was placed. At that point the gastroscope was withdrawn from the patient?s mouth while we were decompressing the bowel and the stomach from any remaining air. The Mediflex retractor was removed, and the undersurface of the liver was inspected and there was no bleeding. The patient was placed in supine position. I closed the fascial defect of the 12 mm port site with a figure of eight #1 Polysorb suture. Then 30cc of Ropivacaine plain with 10 mg of Dexamethasone were used to infiltrate the fascial closure as well as all skin incisions.. At this point, the abdomen was deflated, all ports were removed under direct vision, and no bleeding was noted from any of the port sites. The skin incisions were irrigated with saline and were closed with 4-0 absorbable monofilament sutures. Steri-Strips and OpSites were used to cover all incisions. The patient was extubated and was transferred in stable condition to the recovery room for further care. I was present and performed all mariee parts of the procedure. Ms. Curran was the reference assistant. There were no residents to assist with this case. Toni Gifford MD, PhD, FACS Surgeon: Arden Gifford MD Anesthesia: GETA, local and other (TAP block ) Was an Sofa Cover Inspector used for this Procedure?: No Sofa Cover Inspector: Bethany Curran Estimated blood loss (mL): 50 IV fluids (mL): 2,500 Urine output (mL): 0 (No Rivera to record output) Pathology: other (Stomach) Condition: stable Disposition: PACU
--- NOTE | 2022-08-19 10:16 | PM.PNGS ---
Subjective Subjective Date of Service: 08/20/22 Interval history: Patient has mild incisional pain, but was able to ambulate and use the incentive spirometer. She is tolerating phase 1 bariatric diet Physical Exam Vital Signs: Vital Signs: Last Vital Signs Temp 97.2 F 08/19/22 08:19 Pulse 122 H 08/19/22 08:19 Resp 16 08/19/22 08:19 BP 149/82 H 08/19/22 08:19 Pulse Ox 97 08/19/22 08:19 O2 Del Method 08/19/22 08:19 BMI result Body Mass Index 41.2 GI: Inspection: Yes normal to inspection, Yes incision (clean, dry and intact) and Yes obesity Extrem: Right lower extremity: normal to inspection (no calf tenderness) Left lower extremity: normal to inspection (no calf tenderness) Objective Data Active Medications Fentanyl (Fentanyl Citrate/Pf 100 Mcg/2 Ml Vial) 25 mcg IVPUSH Q5M PRN; Protocol PRN Reason: Pain, Moderate (Pain Scale 4-6 Hydromorphone HCl (Hydromorphone Hcl 0.5 Mg/0.5 Ml Syringe) 0.25 mg IVPUSH Q5M PRN; Protocol PRN Reason: Pain, Severe (Pain Scale 7-10) Lactated Ringer's (Lr) 1,000 mls @ 100 mls/hr IVCONT .Q10H FOX Last Admin: 08/19/22 08:59 Dose: 100 mls/hr Documented By: JENNIFER Promethazine HCl 6.25 mg/ (Sodium Chloride) 50.25 mls @ 201 mls/hr IV ONCE PRN PRN Reason: Nausea and Vomiting Ondansetron HCl (Ondansetron Hcl 4 Mg/2 Ml Vial) 4 mg IVPUSH ONCE PRN PRN Reason: Nausea and Vomiting Labs 08/19/22 12:55 08/19/22 12:55 Labs: Laboratory Results - last 24 hr 08/18/22 13:10 COVID-19 ([facility]CO) Negative COVID-19 Clin Com See Note Procedures Date of Service Date of Service: 08/20/22 Progress Note: A&P Assessment and plan (1) S/P laparoscopy: Status: Acute (2) Hepatomegaly: Status: Acute Plan Doing well. Intraoperative findings were discussed. We will continue weight loss and attempt the procedure again the the future. The patient was in agreement with the plan. Time Spent With Patient Time: Total time managing care of this patient today ____ minutes. Quality Stroke Does the patient have a stroke diagnosis?: No VTE Prior VTE?: No VTE Risk Level:: Surgical - moderate VTE Device Contraindication: N/A - Device Ordered VTE Drug Contraindication: Treatment Not Indicated
--- NOTE | 2022-08-19 10:37 | PC.NURSE ---
Patient ate tuna fish (two spoonfuls) at 1800 on 08/[address] Andre made aware. No new orders, okay to proceed with surgery. OR nurse made aware.
--- NOTE | 2022-08-19 12:27 | P.DS_ITS ---
DS: Providers Provider Date of Service: 08/20/22 Date of admission: 08/19/22 08:17 Primary care physician: Unknown Physician DS: Summary Hospital Course Hospital Course: ADMITTING DIAGNOSIS: morbid obesity DISCHARGE DIAGNOSIS: same, hepatomegaly PAST SURGICAL HISTORY: bilateral tubal ligation PROCEDURE: upper endoscopy, laparoscopy. Sleeve gastrectomy aborted due to hepatomegaly DISCHARGE SUMMARY: History of Present Illness: The patient is a 32 year-old woman with a BMI of 42.2 kg/m2 and associated co- morbidities as described above. The patient had extensive work-up, lost 20. 9lbs preoperatively and was electively scheduled for laparoscopic, possible open sleeve gastrectomy and gastropexy. Risks and complications of the surgery were discussed with the patient in advance, particularly the possibility of , pulmonary embolism, anastomotic leak, bleeding, bowel injury, GERD, cardiac, renal or pulmonary complications. The patient understood all the risks and was in agreement with the surgical plan. Hospital Course: The patient underwent laparoscopy and edoscopy. Laparoscopic sleeve gastrectomy was not able to be performed due to hepatomegaly. There was a superficial liver laceration that was controlled with surgiseal, EBL 50 cc. Postoperatively, the patient was transferred to the surgical floor. The patient received IV Acetaminophen and IV dilaudid for pain control. Patient was kept NPO until we were sure that hgb/hct was stable and then her diet was advanced. On postoperative day one, the patient was feeling well without nausea, vomiting, fevers, or tachycardia. The patient had some mild incisional pain and the abdomen was soft. Hgb/hct was deemed stable by Dr Gifford. During the day, the patient did fairly well, having some incisional pain, but able to ambulate adequately and to tolerate liquids well. Since the patient is doing well, we decided that the patient was ready to be discharged. The patient was given instructions to follow-up with me next week and to call my office for any fever over 101, persistent abdominal pain, nausea, vomiting, GERD, symptoms of DVT such as calf tenderness, or leg swelling, or p ulmonary embolism such as chest pain or shortness of breath. The patient had been given prescriptions for Tylenol for pain, Zofran prn for nausea, and pantoprazole and carafate previously. The patient was encouraged to ambulate and use the incentive spirometer. The patient was allowed to shower, but no baths, and encouraged to stay active at home. All of these instructions were given to the patient personally. All questions were answered and the patient understood all instructions, the instructions were also given to the patient in print. Time Spent with Patient Time attestation: Total time managing care of this patient today ____ minutes. Discharge coordination time: Less than 30 minutes Quality: Safe Use of Opioids Does Pt have an Active Cancer Diagnosis on the Problem List?: No Quality: Stroke Does the patient have a stroke diagnosis?: No Physical Exam Vital Signs: Vital Signs: Last Vital Signs Temp 97.2 F 08/19/22 08:19 Pulse 122 H 08/19/22 08:19 Resp 16 08/19/22 08:19 BP 149/82 H 08/19/22 08:19 Pulse Ox 97 08/19/22 08:19 O2 Del Method 08/19/22 08:19 BMI result Body Mass Index 41.2 DS: Data Data Completed and Pending Labs on day of discharge: Laboratory Results - last 24 hr 08/18/22 13:10 COVID-19 ([facility]) Negative COVID-19 Clin Com See Note Discharge Plan Discharge Anticipated Discharge Date/Time: 08/20/22 10:00 Patient Disposition: Home, Self-Care Discharge Diagnosis: s/p laparoscopy, hepatomegaly Referrals: Physician,Unknown J [Primary Care Provider] - 1 Week Discharge Medications: Continued mecobalamin (vitamin B12) 1,000 mcg tablet,disintegrating 1,000 mcg sublingual DAILY Qty: 30 1RF Rx Instructions: place tablet under tongue and allow to dissolve for at least30 secs before swallowing cholecalciferol (vitamin D3) 125 mcg (5,000 unit) capsule 125 mcg PO DAILY Qty: 30 2RF vitamin A palmitate 10,000 unit capsule 10,000 unit PO DAILY Qty: 30 2RF thiamine HCl (vitamin B1) 100 mg tablet 100 mg PO DAILY Qty: 30 2RF ondansetron HCl 4 mg tablet 4 mg PO Q12H Qty: 20 0RF Vitron-C 65 mg iron- 125 mg tablet,delayed release (DR/EC) 1 tab PO DAILY Qty: 30 2RF Rx Instructions: swallow whole; do not chew/break/dissolve/open Held pantoprazole 40 mg tablet,delayed release (DR/EC) 40 mg PO DAILY Qty: 30 2RF Hold Instructions: Discuss with Dr R sucralfate 100 mg/mL suspension 10 ml PO BID Qty: 400 2RF Hold Instructions: Discuss with Dr Briseno Discharge Orders: Discharge Order (Routine); Ordered 08/20/22 Ordered By: Arden Gifford Activity on Discharge: No heavy lifting Stand Alone Forms: Patient Portal Discharge page Care Plan Goals: weight loss Health Concerns: morbid obesity Plan of Treatment: No tub baths, sex or returning to work until discussed at first post op appointment. No exercise, alcohol, tobacco or illegal drug use. Continue to use incentive spirometer hourly while awake. Walk in home for 5- 10 minutes every 2 hours during the first week. Continue phase 1 diet today and start phase 2 diet tomorrow morning. Follow all instructions in the bariatric handbook and call with any questions. 1. Please call your doctor or come back to the emergency room should any new symptoms arise. 2. You will receive a courtesy call from [facility] 24-48 hours after discharge. 3. Activity: abstain from alcohol, practice limited stair climbing, no bending, no driving, no exercise, no illicit substances, no lifting, no sex, no tub bath, no work. 4. Diet: continue as discussed with bariatric team.. 5. Dressing Change/Wound Care: Do not change or remove surgical dressings unless they are wet or soiled. 6. Call your doctor if: - Your temperature exceeds 101.5 F - You experience excessive pain or swelling - You have an unexpected reaction to medication - You have excessive bleeding - You experience continued vomiting/nausea - Your incision begins to separate - Your incision shows signs of infection such as increased redness, swelling, excessive pain, heat, or drainage (light blood or clear fluid is normal) 7. General instructions: No lifting greater than 5 lbs for the next 4 weeks[address] within 24 hours of taking narcotic pain medications. If you do not move your bowels in the next 2 days, please take milk of magnesia over the counter. Please follow the post op diet and do not advance your diet until you are seen in the office in about 2 weeks. Please walk around your home every hour or two to prevent blood clots from forming in your legs. You do not need to wake from sleeping to walk. Please sleep in a bed or couch to prevent kinking at the hips and knees. Please take your incentive spirometer (your lung rotary drier operator) home with you and use it for the next few days to prevent pneumonias. You may shower, no hot tubs, baths or swimming pools. Please call the office with any questions or concerns such as increasing abdominal pain, fever, chills, shortness of breath, chest pain, leg pain or swelling, or redness or drainage from your incisions. Do not hesitate to contact the office with any questions at . The patient's medical history has been reviewed and they are considered low risk for post op DVT and therefore DVT prophylaxis is not considered necessary. Travel after surgery was reviewed. The patient has not disclosed any travel plans during the first 30 days after surgery and they have been advised that within the first 30 days after surgery any bus, plane, train or car travel over 2 hours in duration is contraindicated due to the possibility of developing blood clots from immobility. Any travel, needs to include periods of ambulation of 10 minutes in duration every 2 hours. The patient was instructed to discuss any plans for travel during this period with their bariatric surgeon. Assessment: s/p laparoscopy, hepatomegaly Discharge Date/Time: 08/20/22 08:53
[2022-08-19 13:03] LABS: Hematocrit 36.5 % (37.0-47.0); Hemoglobin 11.5 g/dl (12.0-16.0)
[2022-08-19 13:18] LABS: Anion Gap 13 (12-20); Blood Urea Nitrogen 10 mg/dL (9-16); Calcium 8.3 mg/dL (8.4-10.2); Carbon Dioxide 20 mmol/L (22-29); Chloride 108 mmol/L (96-108); Creatinine Clr Calc Pharmacy 108.5; Estimated Glomerular Filt Rate > 60; Glucose Random 170 mg/dL (60-115); Potassium 4.3 mmol/L (3.3-5.1); Sodium 137 mmol/L (135-145)
[2022-08-19] MEDS: Famotidine/PF 20 MG/2 ML VIAL IVPUSH ×2 (13:22→19:56)
[2022-08-19] MEDS: ceFAZolin Sodium/Dextrose,Iso 2 GM/50 ML PIGGYBACK IV (16:40)
[2022-08-19] MEDS: ondansetron HCL 4 MG/2 ML VIAL IVPUSH (16:41)
[2022-08-19] MEDS: Acetaminophen 1,000 MG/100 ML PIGGYBACK 16.7 MG IV ×2 (17:50→22:12)
[2022-08-19] MEDS: 0.9 % Sodium Chloride Flush 3 ML SYRINGE IVFLUSH (19:56)
[2022-08-19 20:27] LABS: Hematocrit 37.9 % (37.0-47.0); Hemoglobin 11.9 g/dl (12.0-16.0)
[2022-08-20] MEDS: ondansetron HCL 4 MG/2 ML VIAL IVPUSH ×2 (01:06→07:00)
[2022-08-20 03:09] VITALS: BP 110/56; PULSE 67; RESP 16; TEMP 37.1; O2SAT 95
[2022-08-20] MEDS: Acetaminophen 1,000 MG/100 ML PIGGYBACK 16.7 MG IV (03:52)
[2022-08-20 06:06] LABS: MANUAL DIFF FLAG NO
[2022-08-20 06:08] LABS: Basophils Percent Auto 0.1 % (0-2); Eosinophils Percent Auto 0.1 % (0-4); Hematocrit 33.5 % (37.0-47.0); Hemoglobin 10.5 g/dl (12.0-16.0); Imm Gran Abs Auto 0.05 X10*3/uL (0.00-0.03); Imm Gran Pct Auto 0.4 % (0.0-0.4); Lymphocytes Absolute Auto 1.4 X10*3/uL (1.2-4.9); Lymphocytes Percent Auto 12.4 % (20-40); Mean Corpuscular HGB Conc 31.3 g/dl (31.0-35.0); Mean Corpuscular Hemoglobin 23.5 pg (27.0-33.0); Mean Corpuscular Volume 74.9 fL (80.0-98.0); Mean Platelet Volume 11.1 fL (9.4-12.3); Monocytes Absolute Auto 0.8 X10*3/uL (0.1-1.2); Monocytes Percent Auto 7.2 % (2-11); Neutrophils Absolute Auto 9.2 x10*3/uL (2.0-8.3); Neutrophils Percent Auto 79.8 % (45-73); Platelet Count 324 X10*3/uL (160-400); Red Blood Count 4.47 X10*6/uL (4.20-5.50); Red Cell Distribution Width 16.9 % (11.0-16.0); White Blood Count 11.5 X10*3/uL (4.8-10.8)
[2022-08-20 06:30] LABS: Anion Gap 12 (12-20); Blood Urea Nitrogen 7 mg/dL (9-16); Calcium 8.3 mg/dL (8.4-10.2); Carbon Dioxide 23 mmol/L (22-29); Chloride 107 mmol/L (96-108); Creatinine Clr Calc Pharmacy 130.6; Estimated Glomerular Filt Rate > 60; Glucose Random 117 mg/dL (60-115); Potassium 3.6 mmol/L (3.3-5.1); Sodium 138 mmol/L (135-145)
[2022-08-20] MEDS: Famotidine/PF 20 MG/2 ML VIAL IVPUSH (06:59)
[2022-08-20 08:00] VITALS: BP 122/58; PULSE 92; RESP 16; TEMP 36.8; O2SAT 98
--- NOTE | 2022-08-20 09:02 | MHC.CM.PN ---
EMR REVIEWED, CM MET W/PT PRIOR TO D/C, PT REPORTS SHE LIVES W/HER AND 10&11YO CHILDREN, PT REOPRTS SHE IS INDEPENDENT W/ALL CARE, DENIES USE OF DME/HOE SERVICES, PT'S AT BEDSIDE AND WILL TRANSPORT HOME THIS MORNING. PT REPORTS SHE BELIEVES HER PCP IS DR JONES ON [address] [facility], [facility] AND PT REPORTS SHE BELIEVES SHE DOES HAVE A HCP, COPY REQUESTED.
--- NOTE | 2022-08-20 10:28 | HO.POSTANES ---
Post Anesthesia Evaluation Post Anesthesia Evaluation Vital Signs: Vital Signs Temp Pulse Resp BP Pulse Ox O2 Del Method 08/20/22 08:00 98.2 F 92 16 122/58 L 98 Room Air 08/20/22 03:09 98.7 F 67 16 110/56 L 95 Room Air 08/19/22 23:37 97.8 F 88 18 117/63 98 Room Air Anesthesia: General Endotracheal-GETA Mental Status: Awake Pain Control: Satisfactory Nausea/Vomiting: None Hydration: Adequate Anesthesia-Related Issues: No Anes. Related Issues
== END 2022-08-20 08:53 | disposition home or self-care (01) | DRG 421 ==
LOC: HO.SSSA 12:26 → HO.S3 15:28
PROVIDERS: Physician Assistant; Physician Assistant Surgical; Admitting Provider Surgery; PCP Internal Medicine; Visit Provider Surgery
PROC: 0DJ08ZZ Inspection of Upper Intestinal Tract, Via Natural or Artificial Opening Endoscopic (ICD-10-PCS; CPT 43845; principal; 2022-08-19 10:30)
DX: E66.01 Morbid (severe) obesity due to excess calories (principal); F50.81 Binge eating disorder; K74.00 Hepatic fibrosis, unspecified; R16.0 Hepatomegaly, not elsewhere classified; Z68.41 Body mass index [BMI] 40.0-44.9, adult; K21.9 Gastro-esophageal reflux disease without esophagitis; Z98.51 Tubal ligation status; F17.210 Nicotine dependence, cigarettes, uncomplicated; Z68.39 Body mass index [BMI] 39.0-39.9, adult; Z20.822 Contact with and (suspected) exposure to COVID-19; Z71.6 Tobacco abuse counseling; Z79.899 Other long term (current) drug therapy
CPT/HCPCS: 36415; 80048; 85014; 85018; 85025; 86850; 86900; 86901; 87635; C9088; J0131; J0690; J1100; J1170; J2250; J2405; J2795; J3010

== ENCOUNTER → 2022-08-27 14:03 | Outpatient (BNVA) | payer OTHER, SELFPAY | PROVIDERS: PCP Internal Medicine; Visit Provider Physician Assistant Surgical | DX: Z13.89 Encounter for screening for other disorder (principal) ==

== ENCOUNTER → 2022-09-03 08:38 | Outpatient (BNVA) | payer OTHER, SELFPAY | PROVIDERS: PCP Internal Medicine; Visit Provider Surgery | DX: Z13.89 Encounter for screening for other disorder (principal) ==

== ENCOUNTER → 2022-09-05 09:10 | Outpatient (BNVA) | payer OTHER, SELFPAY | PROVIDERS: PCP Internal Medicine; Visit Provider Surgery | DX: Z13.89 Encounter for screening for other disorder (principal) ==

== ENCOUNTER → 2022-09-10 15:22 | Outpatient (BNVA) | payer OTHER, SELFPAY | PROVIDERS: PCP Internal Medicine; Visit Provider Physician Assistant | DX: Z13.89 Encounter for screening for other disorder (principal) | CPT/HCPCS: 99212 ==

== ENCOUNTER → 2022-10-01 08:11 | Outpatient (BNVA) | payer OTHER, SELFPAY | PROVIDERS: PCP Internal Medicine; Visit Provider Surgery | DX: Z13.89 Encounter for screening for other disorder (principal) ==